=== PATIENT | female | born 1995 | race Caucasian/White ===

== ENCOUNTER 2016-07-21 13:19 | Emergency (ER) | payer BC ==
--- NOTE | 2016-07-21 13:39 | UC ---
Throat Pain/Nasal Iron HPI - HPI Summary HPI Summary: sore throat x 1 day + fever, chills, body aches, no cough, no nasal congestion - History of Current Complaint Chief Complaint: UCRespiratory Stated Complaint: FEVER,SORE THROAT,ACHY Time Seen by Provider: 07/21/16 13:22 Hx Obtained From: Patient Onset/Duration: Sudden Onset, Lasting Days - 1, Still Present Severity: Moderate Cough: None Associated Signs & Symptoms: Positive: Fever. Negative: Dysphagia, Sinus Discomfort, Nasal Discharge, Rash - Allergies/Home Medications Allergies/Adverse Reactions: Allergies Allergy/AdvReac Type Severity Reaction Status Date / Time Cefazolin Allergy Unknown Unknown Verified 07/21/16 13:29 Reaction Details Cefuroxime [From Ceftin] Allergy Unknown Unknown Verified 07/21/16 13:29 Reaction Details Home Medications: Home Medications [id number] [Nyquil Severe Cold/Flu 5-6.25-10-325 mg/15Ml] 1 liq PO PRN 07/21/16 [History] PMH/Surg Hx/FS Hx/Imm Hx Previously Healthy: Yes - Surgical History Surgical History: Yes Surgery Procedure, Year, and Place: ear tubes - Family History Known Family History: Negative: Diabetes - Social History Alcohol Use: Weekly Substance Use Type: Marijuana Substance Use Comment - Amount & Last Used: occ usage Smoking Status (MU): Never Smoked Tobacco Review of Systems Constitutional: Fever, Chills, Fatigue Skin: Negative ENT: Sore Throat Respiratory: Negative Cardiovascular: Negative All Other Systems Reviewed And Are Negative: Yes Physical Exam Triage Information Reviewed: Yes Appearance: Well-Appearing, No Pain Distress, Well-Nourished Vital Signs: Initial Vital Signs Temp 103.1 F 07/21/16 13:22 Pulse 104 07/21/16 13:22 Resp 14 07/21/16 13:22 BP 136/77 07/21/16 13:22 Pulse Ox 97 07/21/16 13:22 Vital Signs Reviewed: Yes Eyes: Positive: Conjunctiva Clear ENT: Positive: Normal ENT inspection, Pharyngeal erythema, TMs normal, Tonsillar exudate. Negative: Nasal congestion, Nasal drainage, Tonsillar swelling Neck: Positive: Supple, Nontender, No Lymphadenopathy Respiratory Exam: Normal Respiratory: Positive: Chest non-tender, Lungs clear, Normal breath sounds Cardiovascular: Positive: No Murmur, Tachycardia Abdominal Exam: Normal Abdomen Description: Positive: Nontender, No Organomegaly, Soft Bowel Sounds: Positive: Present Skin Exam: Normal Skin: Negative: rashes Throat Pain/Nasal Course/Dx - Differential Dx/Diagnosis Provider Diagnoses: pharyngitis Discharge - Discharge Plan Condition: Stable Disposition: HOME Prescriptions: Amoxicillin (*) 875 mg PO BID #20 tab Patient Education Materials: Pharyngitis (ED) Additional Instructions: negative Rapid strep will still treat with abx due to the symptoms Amoxicillin 875 mg 2x per day x 10 days follow up with your pcp if not better in 3 days
[2016-07-21] MEDS ORDERED: Ibuprofen TAB* 600 MG PO ONE (13:46)
[2016-07-21 13:50] VITALS: BP 136/77
== END 2016-07-21 13:53 | disposition home or self-care (01) ==
LOC: UCCORT 13:19
DX: J02.9 Acute pharyngitis, unspecified (principal); R50.9 Fever, unspecified; Z88.1 Allergy status to other antibiotic agents; F12.90 Cannabis use, unspecified, uncomplicated
CPT/HCPCS: 87651; 99202; A9270-GY; G0463

== ENCOUNTER 2017-07-19 11:03 | Emergency (ER) | payer BC ==
[2017-07-19 13:01] VITALS: BP 126/74
[2017-07-19] MEDS ORDERED: Acetaminophen TAB* 325 MG PO ONE (13:27)
--- NOTE | 2017-07-19 13:27 | UC ---
FLU HPI - HPI Summary HPI Summary: Pt c/o sudden onset of fever, chills, cough, body aches that began last night. - History of Current Complaint Chief Complaint: UCRespiratory Stated Complaint: CONGESTION ACHY COUGH Time Seen by Provider: 07/19/17 12:57 Hx Obtained From: Patient Onset/Duration: Sudden Onset, Lasting Hours Severity Currently: Mild Severity Initially: Moderate Pain Intensity: 4 Associated Signs & Symptoms: Positive: Fever, Myalgia, Cough, Headache Related Hx: Possible Flu/Infectious Exposure - Risk Factors Influenza Risk Factors: Negative - Allergy/Home Medications Allergies/Adverse Reactions: Allergies Allergy/AdvReac Type Severity Reaction Status Date / Time cefazolin Allergy Unknown Verified 07/19/17 12:50 Reaction Details cefuroxime [From Ceftin] Allergy Unknown Verified 07/19/17 12:50 Reaction Details Home Medications: Home Medications Ibuprofen [Advil] 600 mg PO ONCE PRN 07/19/17 [History Confirmed 07/19/17] Multivitamin [Multivitamins] 1 each PO DAILY 07/19/17 [History Confirmed ] PMH/Surg Hx/FS Hx/Imm Hx Previously Healthy: Yes - Surgical History Surgical History: Yes Surgery Procedure, Year, and Place: ear tubes - Family History Known Family History: Negative: Diabetes - Social History Occupation: Student Lives: Dormitory/Roommates Alcohol Use: Weekly Alcohol Amount: 16-20 Substance Use Type: Marijuana Substance Use Comment - Amount & Last Used: yesterday Smoking Status (MU): Never Smoked Tobacco Have You Smoked in the Last Year: Yes - marijuana - Immunization History Vaccination Up to Date: Yes Review of Systems Constitutional: Fever, Chills, Fatigue Skin: Negative Eyes: Negative ENT: Sinus Congestion Respiratory: Cough Cardiovascular: Negative Gastrointestinal: Negative Genitourinary: Negative Motor: Negative Neurovascular: Negative Musculoskeletal: Myalgia Neurological: Headache Psychological: Negative Is Patient Immunocompromised?: No All Other Systems Reviewed And Are Negative: Yes Physical Exam Triage Information Reviewed: Yes Appearance: Well-Appearing Vital Signs: Initial Vital Signs Temp 101.5 F 07/19/17 12:53 Pulse 96 07/19/17 12:53 Resp 18 07/19/17 12:53 BP 126/74 07/19/17 12:53 Pulse Ox 100 07/19/17 12:53 Vital Signs Reviewed: Yes Eye Exam: Normal ENT Exam: Other ENT: Positive: Nasal congestion Dental Exam: Normal Neck exam: Normal Respiratory Exam: Normal Cardiovascular Exam: Normal Musculoskeletal Exam: Normal Neurological Exam: Normal Psychological Exam: Normal Skin Exam: Normal Diagnostics - Laboratory Diagnostic Studies Completed/Ordered: rapid flu: positive: B Flu Course/Dx - Differential Dx/Diagnosis Differential Diagnosis/HQI/PQRI: Influenza, Upper Respiratory Infection Provider Diagnoses: Influenza B Discharge - Discharge Plan Condition: Stable Disposition: HOME Prescriptions: Oseltamivir CAP* [Tamiflu CAP*] 75 mg PO Q12H #10 cap Patient Education Materials: Influenza (ED) Forms: *School Release Referrals: [facility] [place] PH[facility]ICIAN REFERRAL [Outside] Non Staff,Doctor [Primary Care Provider] - Additional Instructions: Please follow up with your PCP or return to clinic as needed.
== END 2017-07-19 13:47 | disposition home or self-care (01) ==
LOC: EDSEX 11:03 → UCCORT 11:03
DX: J10.1 Influenza due to other identified influenza virus with other respiratory manifestations (principal); Z88.1 Allergy status to other antibiotic agents
CPT/HCPCS: 87502; 99212; A9270-GY; G0463